=== PATIENT | male | born 1970 | race Caucasian/White ===

== ENCOUNTER 2017-09-18 08:13 | Inpatient (IN) | payer OTHER ==
[~2017-09-18] VITALS: Ht 172.7 cm; Wt 70.3 kg
[2017-09-21] MEDS ORDERED: LOPERAMIDE HCL 2 MG CAPSULE PO PRN ×2 (23:00)
[2017-09-21] MEDS ORDERED: MIRALAX 17 GM POWD.PACK PO PRN (23:00)
[2017-09-21] MEDS ORDERED: ONDANSETRON 4 MG/2 ML VIAL IM PRN (23:00)
[2017-09-21] MEDS ORDERED: MAG HYDROX/AL HYDROX/SIMETH 30 ML LIQUID UDC PO PRN (23:00)
[2017-09-21] MEDS ORDERED: MAGNESIUM HYDROXIDE 30 ML LIQUID UDC PO PRN (23:00)
[2017-09-21] MEDS ORDERED: LORAZEPAM 1 MG TABLET PO PRN (23:00)
[2017-09-21] MEDS ORDERED: ACETAMINOPHEN 325 MG TABLET PO PRN (23:00)
[2017-09-21] MEDS ORDERED: IBUPROFEN 600 MG TABLET PO PRN (23:00)
[2017-09-21] MEDS ORDERED: ONDANSETRON ODT 4 MG TAB.RAPDIS SL PRN (23:00)
[2017-09-21] MEDS ORDERED: diphenhydrAMINE 50 MG CAPSULE PO PRN (23:00)
[2017-09-21] MEDS ORDERED: BUPRENORPHINE HCL 2 MG TAB.SUBL SL PRN (23:00)
[2017-09-21] MEDS ORDERED: METHOCARBAMOL 750 MG TABLET PO PRN (23:00)
[2017-09-21] MEDS ORDERED: HYDROXYZINE PAMOATE 25 MG CAPSULE PO PRN (23:00)
[2017-09-21 23:20] VITALS: BP 145/89
--- NOTE | 2017-09-21 23:20 | NUR ---
Pre-Admission Pre-admission assessment performed in the intake department of [facility]. Pt is A&O x4 and ambulatory with a steady gait. He appears mildly intoxicated and answers questions appropriately. Vitals are: B/P 145/89, HR 74, RR 18, O2 sat 99%, T 98.0m, pain 0/10. He reports that he is here to be treated for heroin use. Last used 1 gram nasal inhalation 09/21/17 at 2100. He reports NKA. Pt is stable and admission to continue on the [facility].
[2017-09-22] VITALS (8 sets, daily range): BP systolic 132–180; BP diastolic 73–103
[2017-09-22 00:10] LABS: *AMPHETAMINE, URINE NEGATIVE (NEGATIVE); *BARBITURATE, URINE NEGATIVE (NEGATIVE); *CANNABINOID, URINE NEGATIVE (NEGATIVE); *COCCAINE, URINE NEGATIVE (NEGATIVE); *OPIATE, URINE POSITIVE (NEGATIVE); *PHENCYCLIDINE SCREEN,URINE NEGATIVE (NEGATIVE)
[2017-09-22] MEDS ORDERED: LORAZEPAM 1 MG TABLET PO ONE ×2 (00:15→21:00)
--- NOTE | 2017-09-22 00:35 | NUR ---
ADMISSION Pt is a 47 yo male who arrived on the [facility] unit at 2336 on 09/21/17 for medically supervised detox from opiates. He is A&O x4 and ambulatory with a steady gait. Body check performed by EMERGENCY MEDICINE and skin check performed by nurse. Pt was oriented to the unit and shown to his room. He reports NKA, is full code status, and on a regular diet. Vitals in intake were B/P 145/89, HR 74, RR 18, O2 sat 99%, T 98.0, pain 0/10. Pt is 5'8" and weighs 155lb. Pt reports PMH of COPD, cardiac stent 2011, TIA 12/2016, heart lesions, acid indigestion, kidney stones x4, borderline HTN, MRSA on right side of face 2013, seizures r/t head injury at age 22, arthritis of the back, spinal fusion, borderline personality disorder, and depression. Last seizure was 02/2017. He has a family hx of CAD. Pt reports that for the past two days he has had intermittent "heartburn" with numbness on the left neck and shoulder and diaphoresis. Last episode just prior to arriving at [facility]. He takes Ranitidine which has not been effective. Pt denies pain or SOB during admission. Lung sounds clear, PERRLA, brisk capillary refill, bowel sounds present, safety belt installer strengths equal, skin is intact. He has BUE scabs. Last BM was 09/21/17 in the morning. Pt's only home medication is Ranitidine currently. History of Use 1) Heroin 3 grams nasal inhalation per day for the past 3 months. Last used 1 gram 09/21/17 at 2100 with a total of 3 grams for the day. He has used heroin intermittently for the past 5 years. Treatment History [facility] in [place], [place] in 1991 for 90 days. Pt has a h/o ETOH use 10 years ago. He smokes 10 cigarettes per day. He decided to come to treatment today because "I know it's gonna be my downfall". His longest period of sobriety was 20 years starting in 1991. Pt lives at home and takes care of his parents. Symptoms when he doesn't use include "body aches, stomach cramps, irritability, headache, nausea, and diarrhea". COWS on admission is 2. Pt does not have a primary care physician at home. MD aware of pt's admission with admission orders received. Pt was educated regarding use of the call light and all questions answered. Bed is down with call light in reach. Addendum: 09/22/17 at 0602 by MARILEE CRUZ RN Pt is noted with barrel shaped chest.
--- NOTE | 2017-09-22 00:40 | NUR ---
MD Communication Pt reports that for the past two days he has had intermittent "heartburn" with numbness on the left neck and shoulder and diaphoresis. Last episode just prior to arriving at [facility]. He takes Ranitidine which has not been effective. Pt denies pain or SOB at this time. Contacted Dr. Norris with orders for STAT EKG.
[2017-09-22] MEDS: hydrALAZINE HCL 50 MG TABLET PO PRN ×2 (00:52→09:29)
--- NOTE | 2017-09-22 00:55 | NUR ---
LUZ MARIA Castelan Pt's B/P is 180/103, HR 85, RR 18, O2 sat 100%, T 98.3. He reports that a few minutes prior he was experiencing painful "heart burn" that has been intermittent over the past 2 days. Addendum: 09/22/17 at 0240 by MARILEE CRUZ RN One time Ativan 2mg also administered per previous MD orders. Addendum: 09/22/17 at 0337 by MARILEE CRUZ RN Pt recently returned from smoking a cigarette.
[2017-09-22] MEDS ORDERED: hydrALAZINE HCL 50 MG TABLET ONE ×2 (01:05→09:30)
--- NOTE | 2017-09-22 01:05 | NUR ---
EKG Results EKG results reported to MD with no new orders.
[2017-09-22] MEDS ORDERED: LORAZEPAM 1 MG TABLET ONE (01:06)
--- NOTE | 2017-09-22 01:55 | NUR ---
PRN Hydralazine and One time Ativan reassessment PRN Hydralazine and one time Ativan effective. Pt is lying in bed resting. B/P 132/87, HR 81, RR 18, O2 sat 100%.
[2017-09-22] MEDS ORDERED: RANI150T8 PO (02:29)
--- NOTE | 2017-09-22 04:00 | NUR ---
0400 COWS deferred COWS ordered Q4HWA. Pt is lying in bed resting with eyes closed. Respirations even and unlabored. Vital signs obtained. Safety measures in place.
[2017-09-22 04:43] LABS: BASOPHILS # (AUTO) 0.1 K/uL (0.0-8.0); BASOPHILS % (AUTO) 1.4 % (0.0-2.0); EOSINOPHILS # (AUTO) 0.2 K/uL (0.0-0.7); EOSINOPHILS % (AUTO) 2.3 % (0.0-7.0); HEMOGLOBIN 14.8 G/DL (14.0-18.0); LYMPHOCYTES % (AUTO) 31.7 % (20.5-51.5); MEAN CORPUSCULAR HEMOGLOBIN 32.1 UUG (27.0-31.0); MEAN CORPUSCULAR HGB CONC 34 g/dL (32.0-37.0); MEAN CORPUSCULAR VOLUME 95.2 FL (82.0-92.0); MONOCYTES # (AUTO) 0.4 K/UL (0.1-1.30); MONOCYTES % (AUTO) 4.5 % (0.0-11.0); NEUTROPHILS # (AUTO) 5.9 K/UL (1.8-8.9); NEUTROPHILS % (AUTO) 60.1 % (38.5-71.5); PLATELET COUNT (AUTO) 318 K/UL (150-450); RED BLOOD CELL COUNT(AUTO) 4.63 MIL/UL (4.7-6.1); WHITE BLOOD COUNT (AUTO) 9.6 K/UL (4.0-11.2)
[2017-09-22 05:11] LABS: ALANINE AMINOTRANSFERASE 22 U/L (16-63); ALKALINE PHOSPHATASE 58 U/L (50-136); ASPARTATE AMINOTRANSFERASE 11 U/L (15-37); BILIRUBIN,TOTAL 0.2 mg/dL (0.2-1.0); CARBON DIOXIDE 32 mmol/L (21-32); CHLORIDE 103 mmol/L (98-107); CREATININE 0.8 mg/dL (0.6-1.3); GLUCOSE 94 mg/dL (74-106); MAGNESIUM 1.8 mg/dL (1.8-2.4); POTASSIUM 3.8 mmol/L (3.5-5.1); TOTAL PROTEIN, SERUM 7.1 g/dL (6.4-8.2); UREA NITROGEN, BLOOD 10 mg/dL (7-18)
[2017-09-22 05:21] LABS: ETHANOL < 3 MG/DL (0-0)
--- NOTE | 2017-09-22 07:19 | NUR ---
END OF SHIFT Report provided to day shift nurse. Pt is lying in bed resting. He is a 47 yo male admitted to [facility] 09/21 at 2336 for opiate dependence. 5 day Subutex taper to start today based on COWS score. Pt was hypertenstive. PRN Hydralazine and one time Ativan administered and effective. STAT EKG performed for c/o "heartburn" with numbness in left neck and shoulder. Results provided to MD. Pt's last use of heroin was 1 gram on 09/21 at 2100 prior to admission. Minimal s/s of withdrawal. Last COWS score 2. SCD pumps in place. He drank 350mL and slept for 5 hours. Safety measures in place.
--- NOTE | 2017-09-22 07:30 | NUR ---
START OF SHIFT Pt is a 47 yr old male, AA&Ox4. Pt was admitted on 09/21/17 for Opiate dependence and is to start on 5 day Subutex taper as ordered. Received report from weight shifter nurse. Pt is full code, NKA and regular diet. Pt received Ativan as scheduled and Hydralazine PRN for increase BP. Medication was effective. COWS score upon admission was 2. Pt slept for 5 hrs during the night. Pt is currently in bed resting with respirations even and unlabored. No acute distress noted. Pt is noted with BUE dry scabs. Skin is warm and dry to touch. Pt is on fall and seizure precautions. Bed kept in low position and locked with side rail up x2. Call light is within reach. Will continue to monitor.
[2017-09-22] MEDS: BUPRENORPHINE HCL 2 MG TAB.SUBL SL SCH ×4 (09:00→21:02)
[2017-09-22] MEDS ORDERED: TUBERCULIN,PURIF.PROT.DERIV. 5 TU/0.1 ML TEST ID ONE ×2 (09:00→09:31)
--- NOTE | 2017-09-22 09:29 | NUR ---
PRN GIVEN Pt's BP was 161/94 and is c/o generalized muscle aching 3/10. Hydralazine 50mg PO PRN and Robaxin 750mg PO PRN was given as ordered. Medication was leona. Encouraged increase fluid intake. Will continue to monitor. TB was administer on LFA. to be read on 09/24/17
[2017-09-22] MEDS ORDERED: METHOCARBAMOL 750 MG TABLET ONE (09:31)
--- NOTE | 2017-09-22 10:30 | NUR ---
PRN RE-ASSESSMENT Robaxin 750mg PO PRN and Hydralazine 50mg PO PRN was effective. Pt denies any muscle aching at this time. BP is 138/73. Encouraged increase fluid intake. Will continue to monitor.
[2017-09-22] MEDS: CLONIDINE HCL 0.1 MG TABLET PO PRN ×2 (13:24→21:02)
--- NOTE | 2017-09-22 13:34 | NUR ---
PRN GIVEN Pt is c/o anxiety, cold chills and muscle aching. Clonidine 0.1mg PO PRN and Motrin 600mg PO PRN was given as ordered. Medication leona well. Encouraged increase fluid intake. COWS score was 10. Subutex 4mg SL as scheduled was administered. Will continue to monitor.
--- NOTE | 2017-09-22 14:35 | NUR ---
PRN RE-ASSESSMENT Clonidine PRN and Motrin PRN was effective. Pt is currently in bed sleeping with respirations even and unlabored., No acute distress noted. RR 16. Safety precautions observed. Call light is within reach. Will continue to monitor.
[2017-09-22] MEDS: CARVEDILOL 6.25 MG TABLET PO SCH (17:21)
--- NOTE | 2017-09-22 18:54 | NUR ---
END OF SHIFT Pt is a 47 yr old male, AA&Ox4. Pt was admitted on 09/21/17 for Opiate dependence and started on 5 day Subutex taper as ordered at 1300. Subutex 4mg SL was held at 0900 due to COWS score of 5. was made aware. Pt received Robaxin PRN, Motrin PRN, Hydralazine PRN and Clonidine PRN during the day. Medication was effective. Pt is observed with increase drowsiness throughout the day and remained in bed. Pt refused to attend group therapy. Pt was cooperative with medication regimen. Pt denied any chest pain throughout the day. Pt is currently in bed resting with respirations even and unlabored. No acute distress noted. Skin is warm and moist to touch. Fine tremors are seen. Pt denies any n/v. Last COWS score was 5 at 1600. Pt is on fall and seizure precautions. Bed kept in low position and locked with side rail up x2. Call light is within reach.
--- NOTE | 2017-09-22 19:15 | NUR ---
START OF SHIFT : Pt is a 47 yr old male, admitted on 09/21/17 for Opiate dependence ,started on 5 day Subutex taper on 09-22-2017. Pt A/O x3, is observed with increased level of anxiety and remains in bed. Pt refused to attend group therapy. He also complains of sleeplessness, is cooperative with medication regimen. No acute distress noted. Skin is warm and dry to touch. Tremors felt, pt. denies any n/v. Last COWS score was 5 at 1600. Pt is on fall and seizure precautions. Safety measures in place : bed on lowest position with side rails x2 up for safety, call light within reach. Will continue to monitor closely and offer help.
[2017-09-22] MEDS ORDERED: BENAZEPRIL HCL 10 MG TABLET PO ONE (21:00)
[2017-09-22] MEDS ORDERED: ATORVASTATIN 20 MG TABLET PO SCH (21:00)
--- NOTE | 2017-09-22 21:00 | NUR ---
PRN CLONIDINE, VISTARIL, BENADRYL Pt. complains of sleeplessness, flashes, increased level of anxiety. PRN CLONIDINE, VISTARIL, BENADRYL given as ordered . Safety measures in place : bed on lowest position with side rails x2 up for safety, call light within reach. Will continue to monitor closely and offer help.
--- NOTE | 2017-09-22 21:34 | NUR ---
Re-ASSESSMENT CLONIDINE, VISTARIL, BENADRYL Pt. is sleeping, RR=16, unlabored and even. Safety measures in place : bed on lowest position with side rails x2 up for safety, call light within reach. Will continue to monitor closely and offer help.
--- NOTE | 2017-09-23 06:47 | NUR ---
END OF SHIFT : Pt is a 47 yr old male, admitted on 09/21/17 for Opiate dependence ,started on 5 day Subutex taper on 09-22-2017 Pt remains compliant with the treatment plan. PRNs CLONIDINE, VISTARIL, BENADRYL were given during my shift. V/S remain WNL. RR=16, even and unlabored, lungs clear upon auscultation, abdomen soft and non- distended. Pt denies nausea, vomiting and diarrhea. Pt. complained of two short episodes of chest pain after 05:30 A.M. is informed, new orders given , ECG done-NSR, Troponin test drawn. VS re-checked=WNL. Pt. also stated to have 3 short episodes of chest pain yesterday at the day time. Pt. asked to report any episode of chest pain to the RN SAHARA. CIWA taken when pt. was alert during the night, LAST CIWA=4 at 0400 , INTAKE= 500 ml, voided x1 , slept 8hours. Safety measures in place : bed on lowest position with side rails x2 up for safety, call light within reach. Will continue to monitor closely and offer help.
[2017-09-23 07:30] VITALS: BP 131/78
[2017-09-23 07:30] LABS: CREATININE 0.7 mg/dL (0.6-1.3); MAGNESIUM 1.6 mg/dL (1.8-2.4); POTASSIUM 4.1 mmol/L (3.5-5.1)
--- NOTE | 2017-09-23 07:34 | NUR ---
START OF SHIFT Pt is a 47 yr old male, AA&Ox4. Pt was admitted on 09/21/17 for Opiate dependence and is on 5 day Subutex taper as ordered. Received report from shift supervisor nurse. Pt is full code, NKA and regular diet. Pt received Clonidine PRN, Vistaril PRN and Benadryl PRN was given during the night. Medication was effective. Last COWS was 4 at 0400. Pt slept for 8 hrs during the night. Pt reported to have chest pain in the morning, ECG and Troponin was done. Pending on Troponin results. Pt at this time denies chest pain. No acute distress noted. Skin is warm and dry to touch. Fine tremors are seen. Encouraged increase fluid intake. Pt is on fall and seizure precautions. Bed kept in low position and locked with side rail up x2. Call light is within reach. Will continue to monitor.
[2017-09-23 08:47] VITALS: BP 143/92
--- NOTE | 2017-09-23 08:48 | NUR ---
CHANGE IN CONDITION Primary nurse asked charge nurse to do an assessment on client because of change in condition. Pt c/o 06/28 headache, c/o left sided weakness on chest, arm, and legs, B/P is 143/92, heart rate 92, pupils equal and reactive to light. Trashman are present but unequal (right side is more strong). Primary nurse to notify .
[2017-09-23 08:49] VITALS: BP 143/92
[2017-09-23] MEDS: CARVEDILOL 6.25 MG TABLET PO SCH (08:49)
--- NOTE | 2017-09-23 08:49 | NUR ---
RR CALLED Rapid Response called for client in regards to change of condition. Pt nurse at bedside at this time with accompanying RN.
--- NOTE | 2017-09-23 08:52 | NUR ---
BG CHECK BG check done per protocol, glucose is 75 mg/dl.
[2017-09-23] MEDS ORDERED: ASPIRIN 81 MG TAB.CHEW PO SCH (09:00)
[2017-09-23] MEDS ORDERED: BUPRENORPHINE HCL 2 MG TAB.SUBL SL SCH (09:00)
[2017-09-23] MEDS ORDERED: BENAZEPRIL HCL 10 MG TABLET PO SCH (09:00)
[2017-09-23 09:06] LABS: HEPATITIS B SURFACE AG Negative (Negative)
--- NOTE | 2017-09-23 09:13 | NUR ---
ER TRANSFER Patient NIH score is 2. Pt transferred to emergency room with RR team at bedside. Pt has IV to LFA #20g, remains A/O x4. Report given at bedside to nurse Wylie. All pertinent information including medical hx, meds administration list, last set of V/S, NIH score, weight and cardiac hx, and copy of facesheet provided. Stroke SBAR copy provided to ER Nurse. Emergency dept. MD Dr. Alan to resume care of client.
--- NOTE | 2017-09-23 09:13 | NUR ---
NSG NOTES At 0846 during medication pass, Pt was c/o chest pain and left side arm and leg weakness after coming back from smoking. Pt speech is clear, Pupils are reactive to light. Pt was able to show his teeth but when asked to raise eyebrows, pt was not be able to raise left side eyebrow. Diamond Picker is present bilaterally but not equal. Left side belt machine operator was weak compared to the right side. Detailer notified Charge Nurse to assess pt. At 0847 Charge Nurse assessed the pt, Dr. Norris was paged immediately. VS were BP 143/92, P92, R 20, O2 100%. At 0849 Rapid Response was called in At 0850 Rapid Response code was announce and by 0852 Rapid response was on unit to assess the pt. 0852 Glucose was checked - 75mg/dl and NIH Score was assessed with a score of 2 for LOC Command belt machine operator/release weak and Sensory pin prick dull on affective side. At 0855 Dr. Norris was call with no response, left voicemail. At 0857 Received a phone call from Dr. Norris. Report to MD of pt's condition and chief of complain. Pt was stating he had a headache of 8/10 and c/o left side arm and leg numbness and weakness. speech was clear. Neurological deficits explained to MD. NIH score was 2. Md was notified Rapid Response was on unit. Per MD, to transfer pt to ER. Pt was a hard stick after multiple attempts, 20 gauge IV was insert on LFA by Fantasma De Los Santos. Rapid response team was assessing pt. At 0913 pt was in ER room
[2017-09-23] MEDS ORDERED: MAGNESIUM OXIDE 400 MG TABLET PO ONE (10:15)
[2017-09-23] MEDS ORDERED: BLOOD SUGAR DIAGNOSTIC 1 EACH STRIP VI ONE (11:30)
[2017-09-24] MEDS ORDERED: BUPRENORPHINE HCL 2 MG TAB.SUBL SL SCH ×2 (09:00→15:00)
[2017-09-24] MEDS ORDERED: ASPI81TA31 PO (17:45)
[2017-09-24] MEDS ORDERED: ATOR80TA PO (17:45)
[2017-09-25] MEDS ORDERED: BUPRENORPHINE HCL 2 MG TAB.SUBL SL SCH (09:00)
[2017-09-26] MEDS ORDERED: BUPRENORPHINE HCL 2 MG TAB.SUBL SL SCH (09:00)
== END 2017-09-23 09:13 | disposition short-term general hospital (02) | DRG 896 ==
LOC: SRC 09-21 22:54
PROVIDERS: ADMIT Internal Medicine; ATTEND Internal Medicine
PROC: HZ2ZZZZ Detoxification Services for Substance Abuse Treatment (ICD-10-PCS; principal; 2017-09-21)
DX: F11.23 Opioid dependence with withdrawal (principal); I63.9 Cerebral infarction, unspecified; G81.94 Hemiplegia, unspecified affecting left nondominant side; F33.1 Major depressive disorder, recurrent, moderate; F10.21 Alcohol dependence, in remission; F17.210 Nicotine dependence, cigarettes, uncomplicated; I25.10 Atherosclerotic heart disease of native coronary artery without angina pectoris; Z95.5 Presence of coronary angioplasty implant and graft; Z81.1 Family history of alcohol abuse and dependence; Z81.3 Family history of other psychoactive substance abuse and dependence; Z82.49 Family history of ischemic heart disease and other diseases of the circulatory system; G89.29 Other chronic pain; K21.9 Gastro-esophageal reflux disease without esophagitis; Z91.89 Other specified personal risk factors, not elsewhere classified; Z87.442 Personal history of urinary calculi; F60.3 Borderline personality disorder; J43.9 Emphysema, unspecified; I10 Essential (primary) hypertension; Z87.820 Personal history of traumatic brain injury; M54.5 Low back pain; Z86.73 Personal history of transient ischemic attack (TIA), and cerebral infarction without residual deficits
CPT/HCPCS: 36415; 70030-TC; 80307; 80361; 83735; 85025; 86580; 86592; 86705; 86803; 87340; 87806; 93005; A4663; G0480; Q0163

== ENCOUNTER 2017-09-23 09:19 | Emergency (ER) | payer OTHER ==
[~2017-09-23] VITALS: Ht 172.7 cm; Wt 70.3 kg
[~2017-09-23 09:19] MED LIST: RANI150T8 PO
--- NOTE | 2017-09-23 09:20 | NUR ---
ILENE nursing costuming supervisor [facility]. Dr. Alan at bedside.
--- NOTE | 2017-09-23 09:22 | NUR ---
Code Stroke activated per Dr. Dayanna valle.
--- NOTE | 2017-09-23 09:29 | NUR ---
Dr. Alan spoke with Dr. Smiley (neuro) via telephone.
--- NOTE | 2017-09-23 09:29 | NUR ---
Pt to CT via lara with traffic analysis technician and Kerrie LUNDBERG with ACLS guidelines in place.
[2017-09-23 09:40] LABS: BASOPHILS # (AUTO) 0.1 K/uL (0.0-8.0); BASOPHILS % (AUTO) 0.7 % (0.0-2.0); EOSINOPHILS # (AUTO) 0.1 K/uL (0.0-0.7); EOSINOPHILS % (AUTO) 1.4 % (0.0-7.0); HEMATOCRIT 40.1 % (36.7-47.1); HEMOGLOBIN 14.4 g/dL (12.5-16.3); LYMPHOCYTES # (AUTO) 2.2 K/uL (20.0-40.0); LYMPHOCYTES % (AUTO) 25.6 % (20.5-51.5); MEAN CORPUSCULAR HEMOGLOBIN 33.9 uug (23.8-33.4); MEAN CORPUSCULAR HGB CONC 36 g/dL (32.5-36.3); MEAN CORPUSCULAR VOLUME 94.6 fL (73.0-96.2); MONOCYTES # (AUTO) 0.6 K/uL (2.0-10.0); MONOCYTES % (AUTO) 7.2 % (0.0-11.0); NEUTROPHILS # (AUTO) 5.6 K/uL (1.8-8.9); NEUTROPHILS % (AUTO) 65.1 % (38.5-71.5); PLATELET COUNT (AUTO) 289 K/uL (152-348); RED BLOOD CELL COUNT(AUTO) 4.24 MIL/uL (4.06-5.63); WHITE BLOOD COUNT (AUTO) 8.6 K/uL (3.6-10.2)
[2017-09-23 09:44] LABS: CARBON DIOXIDE 27 mmol/L (21-32); CHLORIDE 106 mmol/L (98-107); CREATININE 0.6 mg/dL (0.6-1.3); GLUCOSE 72 mg/dL (74-106); POTASSIUM 4.2 mmol/L (3.5-5.1); UREA NITROGEN, BLOOD 10 mg/dL (7-18)
[2017-09-23] MEDS ORDERED: IOHEXOL 350 100 ML INFUS..BTL ONE (09:53)
[2017-09-23] MEDS ORDERED: NORMAL SALINE FLUSH 10 ML DISP.SYRIN ONE (09:53)
[2017-09-23] MEDS ORDERED: IV NORMAL SALINE 250 ML IV ONE (09:53)
--- NOTE | 2017-09-23 09:54 | NUR ---
Pt back from CT.
--- NOTE | 2017-09-23 09:58 | NUR ---
Dr. Smiley assessing pt via TeleCart.
[2017-09-23 10:02] LABS: ALANINE AMINOTRANSFERASE 19 U/L (16-63); ALKALINE PHOSPHATASE 50 U/L (50-136); ASPARTATE AMINOTRANSFERASE 13 U/L (15-37); BILIRUBIN,DIRECT 0.1 mg/dL (0.0-0.2); BILIRUBIN,TOTAL 0.3 mg/dL (0.2-1.0); TOTAL PROTEIN, SERUM 6.8 g/dL (6.4-8.2)
--- NOTE | 2017-09-23 10:06 | NUR ---
Pt signed consent for tPA.
--- NOTE | 2017-09-23 10:06 | NUR ---
Dr. Smiley speaking with pt via tele about possible TPA infusion, Dr. Alan and myself at bedside.
--- NOTE | 2017-09-23 10:10 | NUR ---
Dr. Alan spoke with Dr. Smiley via telephone and expressed her concerns regarding possible tPA infusion.
--- NOTE | 2017-09-23 10:10 | NUR ---
Faisal barnes in ED - 09/23/[address] Alan spoke with Dr. Smiley via telephone regarding possible tPA infusion.
--- NOTE | 2017-09-23 10:29 | NUR ---
tPA given as ordered by Dr. Alan. Prepared by Mini (pharm), total dose 61.4mg, bolus 6.1mg, 55.3mg/ml/hr.
--- NOTE | 2017-09-23 10:35 | NUR ---
Called [facility] ([phone] ) for transport to [facility]. Facesheet and CT report faxed to [phone] as requested.
[2017-09-23] MEDS ORDERED: ALTEPLASE 100 MG VIAL IV ONE (10:45)
[2017-09-23] MEDS ORDERED: MORPHINE SULFATE 2 MG/1 ML DISP.SYRIN IV ONE (10:45)
[2017-09-23] MEDS ORDERED: ONDANSETRON 4 MG/2 ML VIAL IV ONE (10:45)
[2017-09-23] MEDS ORDERED: MORPHINE SULFATE 4 MG/1 ML DISP.SYRIN ONE (10:59)
[2017-09-23] MEDS ORDERED: ONDANSETRON 4 MG/2 ML VIAL ONE (10:59)
--- NOTE | 2017-09-23 11:14 | NUR ---
Pt trans to [facility] via [facility], hands off report given to Ashley LUNDBERG.
--- NOTE | 2017-09-23 11:15 | NUR ---
SBAR report given to Daysi LUNDBERG at [facility] ICU ([phone]) via telephone.
[2017-09-24] MEDS ORDERED: ASPI81TA31 PO (17:45)
[2017-09-24] MEDS ORDERED: ATOR80TA PO (17:45)
== END 2017-09-23 11:27 | disposition short-term general hospital (02) ==
LOC: ER 09:19
DX: I63.9 Cerebral infarction, unspecified (principal); I25.2 Old myocardial infarction; J44.9 Chronic obstructive pulmonary disease, unspecified
CPT/HCPCS: 36415; 37195; 70450; 70496; 70498; 71010; 80048; 80076; 84484; 85025; 85730; 93005; 96374; 96375; 99291; A4663; J2270; J2405; J2997; J3490; J7040; J7050; Q9967; 70030-TC

== ENCOUNTER 2017-09-24 14:34 | Inpatient (IN) | payer OTHER ==
[~2017-09-24] VITALS: Ht 172.7 cm; Wt 68.0 kg
[2017-09-24 16:00] VITALS: BP 125/85
[2017-09-24] MEDS ORDERED: HYDROXYZINE PAMOATE 25 MG CAPSULE PO PRN (17:45)
[2017-09-24] MEDS ORDERED: BUPRENORPHINE HCL 2 MG TAB.SUBL SL PRN (17:45)
[2017-09-24] MEDS ORDERED: METHOCARBAMOL 750 MG TABLET PO PRN (17:45)
[2017-09-24] MEDS ORDERED: ONDANSETRON 4 MG/2 ML VIAL IM PRN (17:45)
[2017-09-24] MEDS ORDERED: LOPERAMIDE HCL 2 MG CAPSULE PO PRN ×2 (17:45)
[2017-09-24] MEDS ORDERED: LORAZEPAM 1 MG TABLET PO PRN (17:45)
[2017-09-24] MEDS ORDERED: ACETAMINOPHEN 325 MG TABLET PO PRN (17:45)
[2017-09-24] MEDS ORDERED: MAG HYDROX/AL HYDROX/SIMETH 30 ML LIQUID UDC PO PRN (17:45)
[2017-09-24] MEDS ORDERED: ONDANSETRON ODT 4 MG TAB.RAPDIS SL PRN (17:45)
[2017-09-24] MEDS ORDERED: ASPI81TA31 PO (17:45)
[2017-09-24] MEDS ORDERED: diphenhydrAMINE 50 MG CAPSULE PO PRN (17:45)
[2017-09-24] MEDS ORDERED: DICYCLOMINE HCL 20 MG TABLET PO PRN (17:45)
[2017-09-24] MEDS ORDERED: ATOR80TA PO (17:45)
[2017-09-24] MEDS ORDERED: IBUPROFEN 600 MG TABLET PO PRN (17:45)
[2017-09-24] MEDS ORDERED: MIRALAX 17 GM POWD.PACK PO PRN (17:45)
--- NOTE | 2017-09-24 17:45 | NUR ---
PRE ASSESSMENT: PT IS IN INTAKE . HE IS A/O X 4. HE STATES HE WAS AT [facility] BECAUSE HE HAD A STROKE HERE YESTERDAY AT [facility]. HE STATES THEY GAVE HIM DILAUDID AT THE HOSPITAL AND HE HAS NOT USED HEROIN IN 2 DAYS. HE STATES HE HAS BEEN MEDICALLY CLEARED AND DISCHARGED FROM HOSPITAL AND WANTS TO COMPLETE HIS DETOX. HE BROUGHT STATIN AND ASA AND IT WAS RECONCILED. WILL ENDORSE ADMISSION TO AIRCRAFT SYSTEMS REPAIRER NURSE. Addendum: 09/24/17 at 1822 by ACACIA WYNNE RN VS ANNABEL.
[2017-09-24] MEDS ORDERED: hydrALAZINE HCL 50 MG TABLET PO PRN (18:15)
[2017-09-24] MEDS ORDERED: LORAZEPAM 2 MG/1 ML VIAL IM PRN (18:15)
[2017-09-24 18:18] LABS: *AMPHETAMINE, URINE NEGATIVE (NEGATIVE); *BARBITURATE, URINE NEGATIVE (NEGATIVE); *CANNABINOID, URINE NEGATIVE (NEGATIVE); *COCCAINE, URINE NEGATIVE (NEGATIVE); *OPIATE, URINE POSITIVE (NEGATIVE); *PHENCYCLIDINE SCREEN,URINE NEGATIVE (NEGATIVE)
[2017-09-24] MEDS ORDERED: BUPRENORPHINE HCL 2 MG TAB.SUBL SL SCH ×2 (18:30→19:30)
--- NOTE | 2017-09-24 19:30 | NUR ---
Admission Notes 47 y/o male admitted on 09/24/17 for Heroin dependence, arrived on the unit at 1745. Px has NKA, on Full Code and following a regular diet. Upon admission COWS 10. BP: 148/97, P: 84, R: 18, O2: 99%, T: 97.8, has generalized body aches of 8/10. Weight 150 lbs, height 5'8". Px reports he does not have a PCP, smokes 1 pack of cigarettes daily, admitted yesterday 09/23/2017 due to CVA. No paralysis on all 4s noted or facial droop. Px is ambulatory with steady gait. Px is able to understand and respond to all questions pertaining to his hospitalization. Substance Abuse History is as follows: 1. Heroin 3 G snorting daily for 2-3 months, last use was 09/21/2017. Using Heroin for 30 years Px's longest sober period for 20 years from 1993 to 2013. Px [facility]. Px reports his sister was using Heroin. PMHx: Anxiety, depression, bipolar disorder, affective disorder, stroke, seizure, epilepsy, meningitis, CHF, chest pains, CAD, HTN, COPD, kidney stones, fractures and surgeries. Upon assessment, px is AAOx4, px is mildly intoxicated, presents with anxiety, body aches, nasal stuffiness and depression . Respirations even and unlabored. Denies SOB, chest pain, N/V/D. Bowel sounds active x 4, abdomen soft. PERRLA. Skin intact, no open wounds noted. Px had hx of suicidal ideation. Educational information provided and left at bedside. Px oriented to room and encouraged to notify staff with any concerns. Safety measures in place. Call light within reach, side rails up padded x2, bed locked and in low position. We'll continue to monitor.
[2017-09-24 20:00] VITALS: BP 148/97
--- NOTE | 2017-09-24 20:00 | NUR ---
Px behavior Px ask if he can smoke cigarettes right now, BP= 153/ 93 on left arm and 148/97 on right arm. Px was advised not to smoke at this time and explained the risk for another stroke. Px got irritated and told us he will just leave the hospital if he will not be permitted to smoke. Dr. Norris informed.
--- NOTE | 2017-09-24 20:18 | NUR ---
RN note Mackenzie Bird Pt noted to become agitated and tried to leave the unit AMA. Dr. Norris was notified and he ordered to call Mackenzie Bird. Per MD, patient has poor insight and is risk for stroke. Mackenzie Bird was called. Security came along with House [employer]. Pt refused to sign AMA papers despite the form being read to him by his nurse. Per pt, he is legally blind so the nurse read the AMA form for him.
--- NOTE | 2017-09-24 20:21 | NUR ---
RN note Pt was assisted back to his room. Coreg, Atorvastatin and Gabapentin medications were administered by his Primary Nurse. Pt continues to verbalize "I am going to leave tonight no matter what." Patient was explained again the risks of leaving AMA.
--- NOTE | 2017-09-24 20:58 | NUR ---
RN note Crisis Team Guanaco of Crisis Team was called for evaluation. Per Guanaco, patient is not holdable. At the moment, patient is inside the room, lying on bed, with no SOB noted and with stable vital signs.
[2017-09-24] MEDS ORDERED: CARVEDILOL 6.25 MG TABLET PO SCH (21:00)
[2017-09-24] MEDS ORDERED: ATORVASTATIN 40 MG TABLET PO SCH (21:00)
[2017-09-24] MEDS ORDERED: GABAPENTIN 300 MG CAPSULE PO SCH (21:00)
[2017-09-24 21:21] VITALS: BP 148/97
--- NOTE | 2017-09-24 21:21 | NUR ---
PRN Vistaril Px was agitated and irritable and wanted to go AMA but doesn't want to sign the AMA form. Px agreed to take standing order medications for 2100. Vistaril 25/ cap, 2 caps given PO as PRN. We'll continue to monitor.
--- NOTE | 2017-09-24 21:30 | NUR ---
RN note Blood Draw Refusal Pt refused blood draw despite explanation of risk and benefits.
[2017-09-24] MEDS ORDERED: LORAZEPAM 1 MG TABLET PO ONE (22:00)
--- NOTE | 2017-09-24 22:30 | NUR ---
RN note AMA Patient left the unit AMA despite explanation of risks of leaving and the benefits of staying to continue detox. Patient refused to sign AMA form. Patient left the unit with his belongings from his room. Addendum: 09/24/17 at 2324 by BRADEN COSTA RN Additional information: Patient verbalized that he will jeffrey the unit and that his brother is a copyist. Addendum: 09/24/17 at 2324 by BRADEN COSTA RN Dr. Norris made aware.
--- NOTE | 2017-09-24 23:06 | NUR ---
TAMIKA note Pt returned inside hospital property to sign AMA form and worm picker remaining belongings. Addendum: 09/24/17 at [address]324 by [address]AD[address] COSTA RN Dr. Norris was notified.
[2017-09-25] MEDS ORDERED: BENAZEPRIL HCL 10 MG TABLET PO SCH (09:00)
[2017-09-25] MEDS ORDERED: ASPIRIN 325 MG TABLET PO SCH (09:00)
[2017-09-25] MEDS ORDERED: MULTIVITAMINS,THERAPEUTIC TABLET PO SCH (09:00)
[2017-09-25] MEDS ORDERED: TUBERCULIN,PURIF.PROT.DERIV. 5 TU/0.1 ML TEST ID ONE (09:00)
[2017-09-25] MEDS ORDERED: BUPRENORPHINE HCL 2 MG TAB.SUBL SL SCH (09:00)
[2017-09-26] MEDS ORDERED: BUPRENORPHINE HCL 2 MG TAB.SUBL SL SCH ×2 (09:00→15:00)
[2017-09-27] MEDS ORDERED: BUPRENORPHINE HCL 2 MG TAB.SUBL SL SCH (09:00)
[2017-09-28] MEDS ORDERED: BUPRENORPHINE HCL 2 MG TAB.SUBL SL SCH (09:00)
== END 2017-09-24 22:30 | disposition left against medical advice (07) | DRG 894 ==
LOC: SRC 17:20
PROVIDERS: ADMIT Internal Medicine; ATTEND Internal Medicine
DX: F11.23 Opioid dependence with withdrawal (principal); F33.1 Major depressive disorder, recurrent, moderate; I10 Essential (primary) hypertension; F17.210 Nicotine dependence, cigarettes, uncomplicated; Z91.89 Other specified personal risk factors, not elsewhere classified; F10.21 Alcohol dependence, in remission; Z87.442 Personal history of urinary calculi; Z86.73 Personal history of transient ischemic attack (TIA), and cerebral infarction without residual deficits; Z82.49 Family history of ischemic heart disease and other diseases of the circulatory system; Z81.1 Family history of alcohol abuse and dependence; I25.10 Atherosclerotic heart disease of native coronary artery without angina pectoris; Z95.5 Presence of coronary angioplasty implant and graft; K21.9 Gastro-esophageal reflux disease without esophagitis; J43.9 Emphysema, unspecified; I65.21 Occlusion and stenosis of right carotid artery; G89.29 Other chronic pain; I65.02 Occlusion and stenosis of left vertebral artery; F60.3 Borderline personality disorder
CPT/HCPCS: 80307; 80361